=== PATIENT | male | born 1940 | race Caucasian/White ===

== ENCOUNTER → 2017-10-18 | Day surgery (SDC) | payer OTHER ==
[2017-10-13 12:47] VITALS: Ht 167.6 cm; Wt 73.6 kg
[~2017-10-18] VITALS: Ht 167.6 cm; Wt 73.6 kg
[~2017-10-18] MED LIST: ASPI-435 PO; ATOR-24 PO; BTH25 PO; CALC600T9 PO; CHOL1000 PO; DOCU-94 PO; FENTANYL CITRATE INJ 50 MCG/1 ML 2 ML VIAL ONE; GLIP-199 PO; LIDOCAINE HCL 2% 2 ML VIAL (20MG/ML) ONE; LISI20TA3 PO; METF-384 PO; MISCCAP80 PO; MULT-506 PO; NIAC500T11 PO; NIFE60TA66 PO; POLY335019 PO; PROP20TA67 PO; PROPOFOL IV EMULSION 10 MG/ML 20 ML VIAL IV ONE
[2017-10-18 10:40] VITALS: TEMP 36.9
--- NOTE | 2017-10-18 11:47 | Endo History and Physical ---
History & Physical Date of Service: Oct 18, 2017. Chief Complaint: abdominal pain bloating and dysphagia Referring Physician: Ray SHEFFIELD History of Present Illness Bloating, dysphagia Past Surgical History Hx Cardiac Surgery: No Hx Internal Defibrillator: No Hx Pacemaker: No Hx Abdominal Surgery: Yes (INGUINAL HERNIA RUPTURE REPAIR) Hx of Implantable Prosthesis: No Hx Post-Op Nausea and Vomiting: No Hx Cancer Surgery: No Hx Thoracic Surgery: No Hx Orthopedic: Yes (RT RCR) Hx Urinary Tract Surgery: Yes (PROSTATE SURGERY FOR REDUCTION) Family History None Social History Smoking Status: Former Smoker Hx Substance Use: No Hx Alcohol Use: Yes (OCCASIONAL) Allergies Coded Allergies: No Known Allergies (Verified , 10/18/17) Current Medications Reported Home Medications Medications Dose Route/Sig Max Daily Dose Days Date Category Aspirin 81 (Aspirin) 81 Mg Tab 1 Tab PO QAM 10/13/17 Reported Probiotic (Probiotic Product) 1 Cap Cap 1 Cap PO QAM 10/13/17 Reported Colace (Docusate Sodium) 100 Mg Cap 1 Cap PO BID 10/13/17 Reported Miralax (Polyethylene Glycol 3350) 1 Pow Pow 17 Gm PO BID 10/13/17 Reported Niacin 500 Mg Tab 500 Mg PO QAM 10/13/17 Reported Multivitamin (Multivitamins) Tab 1 Tab PO QAM 10/13/17 Reported Calcium + D (Calcium Carbonate-Vitamin D) 1 Tab Tab 1 Tab PO QAM 10/13/17 Reported Vitamin D3 (Cholecalciferol) 1,000 Unit Tab 1 Tab PO QAM 10/13/17 Reported Inderal (Propranolol HCl) 20 Mg Tab 20 Mg PO TID 10/13/17 Reported Nifedipine Er (Nifedipine) 60 Mg Tab 1 Tab PO QAM 10/13/17 Reported Glucophage (Metformin Hcl) 1,000 Mg Tab 1,000 Mg PO BID 10/13/17 Reported Prinivil (Lisinopril) 20 Mg Tab 20 Mg PO QAM 10/13/17 Reported Glipizide Er (Glipizide) 10 Mg Tab 1 Tab PO BID 10/13/17 Reported Lipitor (Atorvastatin Calcium) 40 Mg Tab 40 Mg PO HS 10/13/17 Reported Bethanechol Chloride (Bethanechol Chl) 25 Mg Tab 1 Tab PO BID 10/13/17 Reported Vital Signs Weight (Kilograms): 73.64 Height (Feet): 5 Height (Inches): 6 Date Time Temp Pulse Resp B/P (MAP) Pulse Ox O2 Delivery O2 Flow Rate FiO2 10/18/17 10:40 36.9 91 20 186/88 (120) 99 Room Air Physical Exam General Appearance: no apparent distress Respiratory/Chest: Auscultation: breath sounds normal Cardiovascular: Heart Auscultation: RRR Abdomen: Inspection & Palpation: soft Assessment and Plan Bloating, dysphagia - EGD
--- NOTE | 2017-10-18 12:42 | GI REPORT ---
Procedure Date: 10/18/2017 11:48 AM Procedure: Upper GI endoscopy Indications: Dysphagia Medicines: General Anesthesia Complications: No immediate complications. Estimated Blood Loss: Estimated blood loss: none. Procedure: Pre-Anesthesia Assessment: - ASA Grade Assessment: III - A patient with severe systemic disease. After obtaining informed consent, the endoscope was passed under direct vision. Throughout the procedure, the patient's blood pressure, pulse, and oxygen saturations were monitored continuously. The Scope was introduced through the mouth, and advanced to the second part of duodenum. The upper GI endoscopy was accomplished without difficulty. The patient tolerated the procedure well. Findings: The esophagus was normal. The stomach was normal. There was mild defomity and mild narrowing of the duodenal bulb. The examined duodenum was otherwise normal. A guidewire was placed and the scope was withdrawn. Dilation was performed in the upper third of the esophagus with a Savary dilator with no resistance at 16 mm and 18 mm. Recommendation: - Discharge patient to home. Soniya Thomas M.D. Soniya Thomas MD 10/18/2017 12:41:26 PM This report has been signed electronically. Note Initiated On: 10/18/2017 11:48 AM I attest to the content of the Intraoperative Record and orders documented therein, exceptions below
--- NOTE | 2017-10-18 12:42 | Discharge Instructions ---
Endoscopy Patient Instructions Date / Procedure(s) Performed Oct 18, 2017. EGD Allergy Information Coded Allergies: No Known Allergies (Verified , 10/18/17) Discharge Date / Findings Oct 18, 2017. Unremarkable exam. Dilation performed Medication Instructions Stopped Medication(s): Stopped ASA,Metformin and MVI Tuesday Provider Instructions Activity Restrictions - No exercising or heavy lifting for 24 hours. - Do not drink alcohol the day of the procedure. - Do not drive a car or operate machinery until the day after the procedure. - Do not make any important decisions or sign important papers in 24 hours after the procedure. Following Day: - Return to full activity which may include returning to work/school. Diet Start your diet with liquids and light foods (jello, soup, juice, toast). Then eat your usual diet if not nauseated. Treatment For Common After Affects For mild abdominal pain, bloating, or excessive gas: - Rest - Eat lightly - Lie on right side Follow-Up Information Follow-up with Ray SHEFFIELD as scheduled Anesthesia Information What You Should Know You have had a procedure that required some medicine to reduce anxiety and discomfort. This treatment is called moderate sedation. After receiving the treatment, you may be sleepy, but you will be able to breathe on your own. The effects of the treatment may last for several hours. Follow these instructions along with Activity/Diet recommendations noted above: * Do NOT do anything where dizziness or clumsiness would be dangerous. * Rest quietly at home today, then you can be up and about tomorrow. * Have a responsible person stay with you the rest of today. * You may have had an I.V. today. If so, you may take the dressing off later today. Recommendations Call your doctor if: * Trouble breathing * Continuous vomiting for more than 24 hours * Temperature above 101 degrees * Severe abdominal pain or bloating * Pain not relieved by pain medicine ordered * There is increased drainage or redness from any incision * A large amount of rectal bleeding greater than 2-3 tablespoons. (If you had a polyp/s removed or have hemorrhoids, a small amount of blood - from the rectum is to be expected.) * You have any unanswered questions or concerns. IN THE EVENT OF A SERIOUS EMERGENCY, GO TO THE NEAREST EMERGENCY ROOM Your discharge instructions were prepared by provider Soniya Porter. Patient Instructions Signature Page Antonio Thomas Patient (or Guardian) Signature/Date: I have read and understand the instructions given to me by my caregivers. Caregiver/RN/Doctor Signature/Date: The above-named patient and/or guardian has received patient instructions on this date. + Original Patient Signature Page (only) stays with chart. Please make copy for patient.
[2017-10-18 12:51] VITALS: BP 165/80; PULSE 79; O2SAT 97
--- NOTE | 2017-10-18 13:03 | Anesthesiology Progress Note ---
Anesthesia Post Op Note Date & Time Oct 18, 2017 at 13:02 Vital Signs Pain Intensity: 0 Vital Signs Past 12 Hours Date Time Temp Pulse Resp B/P (MAP) Pulse Ox O2 Delivery O2 Flow Rate FiO2 10/18/17 12:51 79 16 165/80 (108) 97 Room Air 10/18/17 12:36 82 18 150/87 (108) 97 Room Air 10/18/17 12:21 99 20 166/85 (112) 99 Mask 10 10/18/17 10:40 36.9 91 20 186/88 (120) 99 Room Air Notes Mental Status: alert / awake / arousable, participated in evaluation Pt Amnestic to Procedure: Yes Nausea / Vomiting: adequately controlled Pain: adequately controlled Airway Patency, RR, SpO2: stable & adequate BP & HR: stable & adequate Hydration State: stable & adequate Anesthetic Complications: no major complications apparent
== END | disposition home or self-care (01) ==
LOC: C.GI 09:33
PROVIDERS: ATTEND Internal Medicine Gastroenterology
DX: R10.9 Unspecified abdominal pain (principal); R14.0 Abdominal distension (gaseous); R13.10 Dysphagia, unspecified; I10 Essential (primary) hypertension; E11.9 Type 2 diabetes mellitus without complications; K21.9 Gastro-esophageal reflux disease without esophagitis; Z87.891 Personal history of nicotine dependence; Z79.82 Long term (current) use of aspirin